=== PATIENT | female | born 1990 | race African-American/Black ===

== ENCOUNTER 2017-05-23 18:00 | Emergency (ER) | payer SELFPAY ==
[~2017-05-23] VITALS: Ht 162.6 cm; Wt 80.3 kg
[2017-05-23 20:15] VITALS: BP 107/63
== END 2017-05-23 21:04 | disposition home or self-care (01) ==
LOC: FSED 18:00
DX: R42 Dizziness and giddiness (principal); R55 Syncope and collapse
CPT/HCPCS: 93005; 99282